=== PATIENT | male | born 1930 | race Caucasian/White ===

== ENCOUNTER 2016-12-14 13:20 | Outpatient (CLI) | payer MEDICARE | END 2016-12-14 23:59 | disposition home health service (06) | LOC: WOU 13:20 | PROVIDERS: ATTEND Podiatrist Foot & Ankle Surgery | DX: E11.621 Type 2 diabetes mellitus with foot ulcer (principal); L97.529 Non-pressure chronic ulcer of other part of left foot with unspecified severity; S90.512A Abrasion, left ankle, initial encounter; X58.XXXA Exposure to other specified factors, initial encounter; Y92.89 Other specified places as the place of occurrence of the external cause; Z74.01 Bed confinement status; Z87.891 Personal history of nicotine dependence; F03.90 Unspecified dementia, unspecified severity, without behavioral disturbance, psychotic disturbance, mood disturbance, and anxiety; I10 Essential (primary) hypertension; E11.40 Type 2 diabetes mellitus with diabetic neuropathy, unspecified; Z79.84 Long term (current) use of oral hypoglycemic drugs; Z79.899 Other long term (current) drug therapy; Z89.432 Acquired absence of left foot; R60.0 Localized edema; R53.1 Weakness | CPT/HCPCS: 11042; 87070; 87075; A6209; A6402; J3490; 87186-TC ==

== ENCOUNTER 2016-12-21 13:13 | Outpatient (CLI) | payer MEDICARE | END 2016-12-21 23:59 | disposition home health service (06) | LOC: WOU 13:13 | PROVIDERS: ATTEND Podiatrist Foot & Ankle Surgery | DX: T87.89 Other complications of amputation stump (principal); E11.621 Type 2 diabetes mellitus with foot ulcer; L97.521 Non-pressure chronic ulcer of other part of left foot limited to breakdown of skin; S90.512D Abrasion, left ankle, subsequent encounter; X58.XXXD Exposure to other specified factors, subsequent encounter; I10 Essential (primary) hypertension; F03.90 Unspecified dementia, unspecified severity, without behavioral disturbance, psychotic disturbance, mood disturbance, and anxiety; Z91.81 History of falling; Z89.432 Acquired absence of left foot | CPT/HCPCS: 11042; A6209; A6402 ==

== ENCOUNTER 2016-12-28 13:44 | Outpatient (CLI) | payer MEDICARE | END 2016-12-28 23:59 | disposition home or self-care (01) | LOC: WOU 13:44 | PROVIDERS: ATTEND Podiatrist Foot & Ankle Surgery | DX: T87.89 Other complications of amputation stump (principal); E11.51 Type 2 diabetes mellitus with diabetic peripheral angiopathy without gangrene; F03.90 Unspecified dementia, unspecified severity, without behavioral disturbance, psychotic disturbance, mood disturbance, and anxiety; Z74.01 Bed confinement status; Z89.432 Acquired absence of left foot; L89.619 Pressure ulcer of right heel, unspecified stage; E11.40 Type 2 diabetes mellitus with diabetic neuropathy, unspecified; Z79.899 Other long term (current) drug therapy; I10 Essential (primary) hypertension; Z79.84 Long term (current) use of oral hypoglycemic drugs | CPT/HCPCS: 11042; A6209; A6402 ==

== ENCOUNTER 2017-01-11 13:45 | Outpatient (CLI) | payer MEDICARE | END 2017-01-11 23:59 | disposition home health service (06) | LOC: WOU 13:45 | PROVIDERS: ATTEND Podiatrist Foot & Ankle Surgery | DX: T87.89 Other complications of amputation stump (principal); L97.521 Non-pressure chronic ulcer of other part of left foot limited to breakdown of skin; E11.52 Type 2 diabetes mellitus with diabetic peripheral angiopathy with gangrene; F03.90 Unspecified dementia, unspecified severity, without behavioral disturbance, psychotic disturbance, mood disturbance, and anxiety; Z89.432 Acquired absence of left foot; E11.40 Type 2 diabetes mellitus with diabetic neuropathy, unspecified; Z79.899 Other long term (current) drug therapy; I10 Essential (primary) hypertension; Z79.84 Long term (current) use of oral hypoglycemic drugs; Z87.891 Personal history of nicotine dependence | CPT/HCPCS: 11042; A6209; A6402 ==

== ENCOUNTER 2017-01-25 14:30 | Outpatient (CLI) | payer MEDICARE | END 2017-01-25 23:59 | disposition home health service (06) | LOC: WOU 14:30 | PROVIDERS: ATTEND Specialist | DX: T87.81 Dehiscence of amputation stump (principal); E11.621 Type 2 diabetes mellitus with foot ulcer; L97.529 Non-pressure chronic ulcer of other part of left foot with unspecified severity; F03.90 Unspecified dementia, unspecified severity, without behavioral disturbance, psychotic disturbance, mood disturbance, and anxiety; I10 Essential (primary) hypertension; Z87.891 Personal history of nicotine dependence | CPT/HCPCS: 97597; A6402 ==